=== PATIENT | male | born 1935 | race African-American/Black ===

== ENCOUNTER 2017-09-30 19:53 | Observation (INO) | payer OTHER ==
[~2017-09-30] VITALS: Ht 172.7 cm; Wt 72.6 kg
[~2017-09-30 19:53] MED LIST: AGGRENOX 25 MG-1 CAP PO; AGGRENOX 25 MG1 EACH PO; AMLODIPINE BESY PO; AMLODIPINE-ATO1 EAC7 PO; BACTRIM DS 8001 TAB PO; CIALIS20 M1 PO; GLIPIZIDE ER10 M1 PO; GLIPIZIDE ER10 MG PO; LISINOPRIL AND1 TA1 PO; LISINOPRIL-HCT1 EACH PO; MAGNESIUM OXID400 MG PO; MAGNESIUM400 MG PO; MELOXICAM15 M1 PO; METFORMIN HCL1000 M1 PO; METFORMIN1000 MG PO; ZOFRAN ODT4 M1 SL
--- NOTE | 2017-09-30 21:01 | ED AMS/SEIZURE/WEAK/DIZZY ---
History of Present Illness General Chief Complaint: Altered Mental Status Stated Complaint: HAVING PROBLEMS WITH MEMORY Source: patient, family, old records Exam Limitations: poor historian Vital Signs & Intake/Output Vital Signs & Intake/Output Vital Signs Date Time Temp Pulse Resp B/P B/P Pulse O2 O2 Flow FiO2 Mean Ox Delivery Rate 09/30 2238 97.2 55 18 147/74 96 Room Air 09/30 2024 97.1 83 18 148/92 96 Room Air Allergies Coded Allergies: NO KNOWN ALLERGIES (11/11/11) Reconcile Medications Amlodipine/Atorvastatin (Amlodipine-Atorvast 5-20 MG) 5 MG-20 MG TABLET 1 TAB PO DAILY BP/CHOL (Reported) Dipyridamole W/ Aspirin (Aggrenox 25 MG-200 MG Capsule) 25 MG-200 MG CPMP.12HR 1 CAP PO BID BLOOD THINNER (Reported) Glipizide (Glipizide ER) 10 MG TAB.ER.24 1 TAB PO BID DM (Reported) Lisinopril/Hydrochlorothiazide (Lisinopril-Hctz 20-12.5 MG Tab) 20 MG-12.5 MG TABLET 1 TAB PO DAILY BP (Reported) Magnesium Oxide (Magnesium) 400 MG TABLET 1 TAB PO BID SUPPLEMENT (Reported) Meloxicam 15 MG TABLET 1 TAB PO DAILY PAIN/INFLAMMATION (Reported) Metformin HCl 1,000 MG TABLET 1 TAB PO BID DM (Reported) Ondansetron (Zofran Odt) 4 MG TAB.RAPDIS 1 TAB SL TID Nausea Tadalafil (Cialis) 20 MG TABLET 1 TAB PO AD PRN ED (Reported) Triage Note: PT FROM HOME C/O AMS SINCE 1800 AFTER NAP. PT HAS HX OF TIA, PT STATES THAT AFTER HIS NAP TODAY HE AWOKE WITH DISORIENTATION, PTS STATED PT WAS FORGETFUL, UNABLE TO GET THE PROPER WORDS OUT, AND UNABLE TO DESCRIBE PEOPLE OR PLACES. PTS NIH STROKE SCALE 0. PT HAS BILATERAL AND EQUAL MOVEMENTS OF ROM, FACIAL SYMMETRY. PTS BS IN TRIAGE 139. PTS A&0X3. Triage Nurses Notes Reviewed? yes HPI: Patient presents for evaluation of poor memory, disorientation and difficulty speaking after having a nap at about 1800 hrs. Past History Travel History Traveled to [place] past 21 day No Medical History Any Pertinent Medical History? 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 No Review of Systems Review of Systems Constitutional: Reports: no symptoms. EENTM: Reports: no symptoms. Respiratory: Reports: no symptoms. Cardiovascular: Reports: no symptoms. GI: Reports: no symptoms. Genitourinary: Reports: no symptoms. Musculoskeletal: Reports: no symptoms. Skin: Reports: no symptoms. Neurological/Psychological: Reports: see HPI. Hematologic/Endocrine: Reports: no symptoms. Immunologic/Allergic: Reports: no symptoms. All Other Systems: Reviewed and Negative Physical Exam Physical Exam General Appearance: see below Comments: Gen.: Well-nourished, well-developed, no acute respiratory distress. Head: Normocephalic, atraumatic. Eyes: Normal inspection bilaterally Ears: Normal inspection bilaterally Nose: Normal inspection Throat/mouth : Moist mucosa Neck: Supple, full range of motion, no goiter Heart: Regular rate and rhythm, no murmurs rubs or gallops Lungs: Clear to auscultation bilaterally with normal air entry Chest: Nontender Back: Normal range of motion Abdomen: Soft, nontender, nondistended, normal bowel sounds Extremities: Normal range of motion grossly, equal radial pulses, no cyanosis clubbing or edema Neurologic: Cranial nerves , speech is clear, gait stable Skin: warm and dry Psychiatric: Calm, cooperative, no apparent delusions or hallucinations Core Measures ACS in differential dx? No CVA/TIA Diagnosis Yes NIH Stroke Scale (24 Hours) NIH Stroke Scale (24 Hours) Response Value Level of Consciousness alert 0 LOC Questions answers both correctly 0 LOC Commands obeys both correctly 0 Best Gaze normal 0 Visual Manzano no visual loss 0 Facial Paresis normal 0 Motor Arm - Left no drift 0 Motor Arm - Right no drift 0 Motor Leg - Left no drift 0 Motor Leg - Right no drift 0 Limb Ataxia no ataxia 0 Sensory normal 0 Best Language no aphasia 0 Dysarthria normal articulation 0 Extinction and Inattention no neglect 0 Total 0 Swallow Evaluation Pass Sepsis Present: No Sepsis Focused Exam Completed? No Progress Differential Diagnosis: CVA/stroke, hypoglycemia, hypoxia, intracranial mass/ tumor Plan of Care: Orders Procedure Date/time Status Heart Healthy Diet 10/01 B Active Add-on Test (ER Only) 09/30 2302 Active EKG 09/30 2156 Active URINE DRUG SCREEN FOR ER ONLY 09/30 2033 Complete ETHANOL 09/30 2033 Complete COMPREHENSIVE METABOLIC PANEL 09/30 2033 Complete CBC WITHOUT DIFFERENTIAL 09/30 2033 Complete Laboratory Tests 09/30/17 2100: Urine Opiates Screen < 100.00, Methadone Screen < 40, Barbiturate Screen < 60, Ur Phencyclidine Scrn < 6.00, Amphetamines Screen < 100, U Benzodiazepines Scrn < 85, Urine Cocaine Screen < 50, Urine Cannabis Screen < 5.00 09/30/172053: Anion Gap 14, Estimated GFR 58 L, BUN/Creatinine Ratio 19.2, Glucose 107 H, Calcium 9.9, Total Bilirubin 0.2, AST 17, ALT 35, Alkaline Phosphatase 69, Total Protein 7.2, Albumin 4.1, Globulin 3.1, Albumin/Globulin Ratio 1.3, CBC w Diff NO MAN DIFF REQ, RBC 3.94 L, MCV 90.0, MCH 29.5, RDW 14.0, MPV 9.1, Gran % 60.4 , Lymphocytes % 25.3, Monocytes % 11.6 H, Eosinophils % 2.3, Basophils % 0.4, Absolute Granulocytes 3.3, Absolute Lymphocytes 1.4, Absolute Monocytes 0.6, Absolute Eosinophils 0.1, Absolute Basophils 0, PUBS MCHC 32.8 L, Serum Alcohol < 10.0 Radiology Impression: PATIENT: BOONE MALHOTRA PRESENT AGE: 81 PATIENT ACCOUNT NO: [id number] : 37 LOCATION: [facility] ORDERING PHYSICIAN: Rigoberto VIEYRA SERVICE DATE: 09/30/17-2032 EXAM TYPE: CAT - CT HEAD WO IV CONTRAST EXAMINATION: CT HEAD WITHOUT CONTRAST CLINICAL INFORMATION: Altered mental status and confusion; question CVA. COMPARISON: Prior CT examinations of the brain, most recently 05/18/2017. TECHNIQUE: Contiguous axial imaging was performed from the skull base to vertex without intravenous administration of contrast. DLP: 552.07 mGy-cm FINDINGS: There is no evidence of acute intracranial hemorrhage or territorial infarction. No abnormal mass effect or midline shift is seen. Farrell to white matter differentiation is well preserved. No extra-axial fluid collections are identified. The ventricles are normal in size. A chronic-appearing lacunar infarction is seen adjacent to the left thalamus and posterior limb internal capsule (2:26). This is more prominent than was seen previously. The osseous structures and soft tissues are normal. There is moderate right ethmoid sinusitis, most pronounced posteriorly. The mastoid air cells are well-aerated and clear. IMPRESSION: 1. No acute intracranial pathology. 2. 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 3. There is moderate right ethmoid sinusitis. DICTATED BY: Tahir Smyth MD DATE/ TIME DICTATED:09/30/172112 OFFICE SERVICES ASSISTANT:EMMANUEL DATE/TIME TRANSCRIBED: 09/30/172112 CONFIDENTIAL, DO NOT COPY WITHOUT APPROPRIATE AUTHORIZATION. < Electronically signed in Other Vendor System> SIGNED BY: Tahir Smyth MD 09/30/172120 Initial ED EKG: NSR, rate (74), PAC'S Prior EKG: unchanged Comments: 09/30/2017 11:04:15 PM I have updated Boone and his daughter on test results. Departure Departure Disposition: STILL A PATIENT Condition: Stable Clinical Impression Primary Impression: TIA (transient ischemic attack) Referrals: Naun Collazo MD (PCP/Family) Departure Forms: Customer Survey General Discharge Information Observation Note Spoke With: Cy Tena MD Place Patient In: Non-ED OBS Care Area Rationale for Observation: My rational for observation is as follows patient presents for evaluation of an episode of disorientation, trouble speaking and confusion. This episode is consistent with a TIA and the patient has a past history of prior TIAs along with hypertension and diabetes. He is at risk of a completed stroke and I feel he now requires an expedited evaluation for potentially reversible causes of TIA including cardioembolic phenomenon and carotid artery disease. I do not feel he is a good candidate for outpatient management given that the evaluation would likely take too long to complete placing him at risk of a completed stroke. I feel he now requires hospitalization for cardiac monitoring for the possibility of transient cardiac dysrhythmia and cardiac box phenomenon. In addition I feel he requires evaluation by neurology. Patient's medications should be reviewed and are optimized. Echocardiogram and carotid Doppler studies should be considered.
[2017-09-30 21:08] LABS: ABSOLUTE BASOPHIL COUNT 0 /CUMM (0.0-0.2); ABSOLUTE EOSINOPHIL COUNT 0.1 /CUMM (0.0-0.7); ABSOLUTE GRANULOCYTE CT 3.3 /CUMM (1.4-6.5); ABSOLUTE LYMPH COUNT 1.4 /CUMM (1.2-3.4); ABSOLUTE MONOCYTE COUNT 0.6 /CUMM (0.10-0.60); BASOPHIL % 0.4 % (0.0-2.0); EOSINOPHIL % 2.3 % (0-5); GRANULOCYTE % 60.4 % (42.2-75.2); HEMATOCRIT 35.4 % (42-52); MEAN CORPUSCULAR HGB 29.5 PG (27.0-31.0); MEAN CORPUSCULAR HGB CONC 32.8 G/DL (33.0-37.0); MEAN PLATELET VOLUME 9.1 FL (7.4-10.4); PLATELET COUNT 304 /CUMM (130-400); RED BLOOD CELL CT 3.94 /CUMM (4.70-6.10); WHITE BLOOD CELL COUNT 5.5 /CUMM (4.8-10.8)
--- NOTE | 2017-09-30 21:21 | CT SCAN REPORT ---
EXAMINATION: CT HEAD WITHOUT CONTRAST CLINICAL INFORMATION: Altered mental status and confusion; question CVA. COMPARISON: Prior CT examinations of the brain, most recently 05/18/2017. TECHNIQUE: Contiguous axial imaging was performed from the skull base to vertex without intravenous administration of contrast. DLP: 552.07 mGy-cm FINDINGS: There is no evidence of acute intracranial hemorrhage or territorial infarction. No abnormal mass effect or midline shift is seen. Farrell to white matter differentiation is well preserved. No extra-axial fluid collections are identified. The ventricles are normal in size. A chronic-appearing lacunar infarction is seen adjacent to the left thalamus and posterior limb internal capsule (2:26). This is more prominent than was seen previously. The osseous structures and soft tissues are normal. There is moderate right ethmoid sinusitis, most pronounced posteriorly. The mastoid air cells are well-aerated and clear. IMPRESSION: 1. No acute intracranial pathology. 2. 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 3. There is moderate right ethmoid sinusitis.
--- NOTE | 2017-09-30 23:58 | History & Physical ---
Monica JURADO,Kathy 09/30/17 4862: General Information and HPI MD Statement: I have seen and personally examined BOONE MALHOTRA and documented this H&P. The patient is a 81 year old M who presented with a patient stated chief complaint of [confusion]. 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 Patient states that at approximately 6:00 PM on day of admission he fell asleep watching TV and woke up after taking and felt confused however he was able to recognize his and knew that he was at home. States that he was having trouble answering his 's questions. Stated he knew what he wanted to say but was unable to say the words. Patient states that he also had trouble recalling names and had trouble comprehending written words. States that he had some slowing of speech. Patient denies any facial droop or being told that he had a droop. Denies any weakness or numbness. States that at baseline he has some unsteadiness on his feet which has remained the same during this event. Patient denies leaning to or favoring one side. Patient denies any loss of consciousness, headache, visual changes, bowel or bladder incontinence, lightheadedness, dizziness, chest pain, palpitations, nausea/vomiting, shortness of breath. Patient states that his symptoms lasted approximately 5 minutes and after which he returned to his baseline. Patient is currently on metformin and glipizide however does not check his sugars regularly. His sugar per ED notes was 139. Patient has had TIAs in the past, the last was in 2013 admitted to [facility]. Patient states that the symptoms he has had this admission are similar to those in 2014. Patient is currently on Aggrenox which he states he sometimes misses doses. Patient sees Dr. Hartley and states that he has had a Holter monitor in the past and has been diagnosed with an extra heart beat. Allergies/Medications Allergies: Coded Allergies: NO KNOWN ALLERGIES (11/11/11) Home Med list Amlodipine/Atorvastatin (Amlodipine-Atorvast 5-20 MG) 5 MG-20 MG TABLET 1 TAB PO DAILY BP/CHOL (Reported) Dipyridamole W/ Aspirin (Aggrenox 25 MG-200 MG Capsule) 25 MG-200 MG CPMP.12HR 1 CAP PO BID BLOOD THINNER (Reported) Glipizide (Glipizide ER) 10 MG TAB.ER.24 1 TAB PO BID DM (Reported) Lisinopril/Hydrochlorothiazide (Lisinopril-Hctz 20-12.5 MG Tab) 20 MG-12.5 MG TABLET 1 TAB PO DAILY BP (Reported) Magnesium Oxide (Magnesium) 400 MG TABLET 1 TAB PO BID SUPPLEMENT (Reported) Meloxicam 15 MG TABLET 1 TAB PO DAILY PAIN/INFLAMMATION (Reported) Metformin HCl 1,000 MG TABLET 1 TAB PO BID DM (Reported) Tadalafil (Cialis) 20 MG TABLET 1 TAB PO AD PRN ED (Reported) Past History Travel History Traveled to [place] past 21 day No Medical History Neurological: TIA X2 EENT: NONE Cardiovascular: hypertension, hyperlipidemia, irreg heart beat Gastrointestinal: NONE Hepatic: NONE Renal: NONE Musculoskeletal: NONE Psychiatric: NONE Endocrine: diabetes Blood Disorders: NONE Cancer(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 Denies: chills, fever. Cardiovascular: Denies: chest pain, palpitations, syncope. Respiratory: Denies: cough, short of breath. GI: Denies: abdominal pain, bowel incontinence, nausea, vomiting. Genitourinary: Denies: dysuria, frequency, hematuria, urgency. Musculoskeletal: Reports: no symptoms. Skin: Reports: no symptoms. Neurological/Psychological: Reports: confusion. Hematologic/Endocrine: Reports: no symptoms. Immunologic/Allergic: Reports: no symptoms. Exam & Diagnostic Data Last 24 Hrs of Vital Signs/I&O Vital Signs Date Time Temp Pulse Resp B/P B/P Pulse O2 O2 Flow FiO2 Mean Ox Delivery Rate 10/01 0057 98.1 78 18 169/81 97 Room Air 09/309 97.2 55 18 147/74 96 Room Air 09/30 2024 97.1 83 18 148/92 96 Room Air Intake & Output 10/01 0800 10/01 0000 09/30 1600 Intake Total 0 Output Total Balance 0 Intake, Oral 0 Patient 160 lb Weight Weight Estimated Measurement Method Physical Exam General Appearance Alert, Oriented X3, Cooperative, No Acute Distress Skin No Rashes Skin Temp/Moisture Exam: Warm/Dry HEENT Atraumatic, PERRLA, EOMI, Mucous Membr. moist/pink Neck Supple, No JVD, No thryomegaly, +2 Carotid Pulse wo Bruit Lymphatic Axillary nl Cardiovascular Regular Rate, Normal S1, Normal S2 Lungs Clear to Auscultation, Normal Air Movement Abdomen Normal Bowel Sounds, Soft, No Tenderness Neurological Normal Gait, Normal Speech, Strength at 5/5 X4 Ext, Normal Tone, Sensation Intact, Cranial Nerves 3-12 NL, Reflexes 2+, negative rhomberg, reflexes 2+ brachial and patellar Extremities No Clubbing, No Cyanosis, No Edema, Normal Pulses, No Tenderness/ Swelling Vascular Normal Pulses, Pulses Symmetrical Last 24 Hrs of Labs/Rd: Laboratory Tests 09/30/17 2100: Urine Opiates Screen < 100.00, Methadone Screen < 40, Barbiturate Screen < 60, Ur Phencyclidine Scrn < 6.00, Amphetamines Screen < 100, U Benzodiazepines Scrn < 85, Urine Cocaine Screen < 50, Urine Cannabis Screen < 5.00, Urine Color YEL, Urine Clarity CLEAR, Urine pH 6.5, Ur Specific [place] 1.020, Urine Protein NEG, Urine Ketones NEG, Urine Nitrite NEG, Urine Bilirubin NEG, Urine Urobilinogen 0.2, Ur Leukocyte Esterase NEG, Ur Microscopic EXAM NOT REQUIRED, Urine Hemoglobin NEG, Urine Glucose NEG 09/30/172053: Anion Gap 14, Estimated GFR 58 L, BUN/Creatinine Ratio 19.2, Glucose 107 H, Calcium 9.9, Total Bilirubin 0.2, AST 17, ALT 35, Alkaline Phosphatase 69, Troponin I Pending, Total Protein 7.2, Albumin 4.1, Globulin 3.1, Albumin/ Globulin Ratio 1.3, CBC w Diff NO MAN DIFF REQ, RBC 3.94 L, MCV 90.0, MCH 29.5, RDW 14.0, MPV 9.1, Gran % 60.4, Lymphocytes % 25.3, Monocytes % 11.6 H, Eosinophils % 2.3, Basophils % 0.4, Absolute Granulocytes 3.3, Absolute Lymphocytes 1.4, Absolute Monocytes 0.6, Absolute Eosinophils 0.1, Absolute Basophils 0, PUBS MCHC 32.8 L, Serum Alcohol < 10.0 Diagnostic Data EKG Results Sinus rhythm with HR: 74, LAD, premature atrial beats, no ST or Twave changes Other Results CT head: no acute findings, chronic appearing lunar infarct L thalamus more pronounced from previous imaging, R ethmoid sinusitis Assessment/Plan Assessment: Patient is a 81-year-old male with past medical history significant for TIA 2, diabetes, hypertension, hyperlipidemia and irregular heartbeat presenting this admission with transient expressive aphasia. Patient will be placed on observation on telemetry for the followin. Transient ischemic attack Monitor on telemetry for any arrhythmia especially atrial fibrillation Serial EKG and troponins Neurology consult Cardiology consult MRI in the a.m. Echocardiogram Carotid Dopplers Continue Aggrenox Continue atorvastatin at a higher dose 80mg Patient passed a bedside swallow Formal swallow evaluation in the a.m. PT eval in the a.m. 2. History of hypertension Continue amlodipine 5 mg Continue lisinopril/hydrochlorothiazide 3. History of diabetes Hold oral hypoglycemic agents Place on insulin sliding scale and Accu-Cheks 3 times a day/daily at bedtime 4. History of hyperlipidemia Continue atorvastatin 5. History of irregular heartbeat- EKG showing multiple premature atrial beats Continue magnesium oxide 400 mg twice a day DVT Prophylaxis: Heparin subcutaneous Diet: Diabetic diet Code: Full code As Ranked By This Provider Problem List: 1. TIA (transient ischemic attack) Core Measures/Misc (06/04) Acute Coronary Syndrome ACS Diagnosis: No Congestive Heart Failure Congestive Heart Failure Diagnosis No Cerebrovascular Accident CVA/TIA Diagnosis: Yes NIH Stroke Scale: Total 0 Date Last Known Well: 09/30/17 Time Last Known Well: 1800 Symptom Start Date: 09/30/17 Symptom Start Time: 1800 Reason tPA not ordered Medical Contraindication Swallow Evaluation Pass Current/Past Hx AFib/AFlutter No VTE (View Protocol) VTE Risk Factors Age>40 No Mechanical VTE Prophylaxis d/t N/A MechProphylax Ordered No VTE Pharm Prophylaxis d/t NA PharmProphylax ordered Sepsis (View protocol) Sepsis Present: No Franc Chaney 10/01/17 0203: Resident Review Statement Resident Statement: examined this patient, discussed with r d intern, agreed with r d intern, discussed with family, reviewed EMR data (avail), discussed with nursing , discussed with case mgmt, reviewed images, amended to note Other Findings: Patient is a 81-year-old -[place] gentleman with past medical history of hypertension, diabetes, previous TIA in 2013 (on Aggrenox) presented at the emergency room complaining of brief episode of speech disturbance. He was at his usual state of health up when this evening, suddenly developed a brief (less than 5 minutes), self limited, spell expressive aphasia, and disturbance of thought (could not think straight), and inability to read. This episode was not accompanied by any headache, loss of consciousness, numbness/ weakness, chest palpitation, feeling nauseous/and vomiting, sweating. Patient lives with his ; he has an chronic back pain and mild gait instability, but ambulates without help; he is independent in his daily chores and taking care of his and himself (primary caregiver for his ). FHx: HTN; ROS: negaive; VSS; PH/Ex: HEET: membranes most, EOMI, no carotid bruit pupil:reactive and symmetric; HEART: S1-S2, mild crescent decrease in the systolic murmur right upper sternal borderl; lungs: Clear; abdomen: Within normal limits; Neuro: AOx3, strength: 5/5 x4 extremities, sensation: decreased in B/L lower extremities; reflexes: +2 bracial, +1 knee jerk, pulses: +2 x4 extremities. Pertinent Data: CBC:wnl; BEP: Creatinine 1.2 , BUN 23, sodium 146, potassium 4.7. Head CT scan: negative EKG: Normal sinus rate and rhythm, 74 beats per minutes, nonspecific ST-T wave change Assessment and plan 81-year-old gentleman past medical history of hypertension, diabetes, and previous TIA was admitted for another episode of expressive aphasia/TIA. List of active problems #1 TIA: Trending troponin and ruling out ACS, obtaining echo ruling out structural heart disease, continuous heart monitoring for undiagnosed arrhythmia. #2 Hypertension #3 Diabetes #4 DVT PPx Plan * Admit to telemetry for 24-hour continuous heart monitoring * Neuro check Q4 h * Obtain echo in the a.m. * Obtain Doppler ultrasound of the carotid arteries * Physical therapy/OT eval in the morning * Official swallow eval in the a.m. * Patient past bedside swallow eval * Continue his Aggrenox * Continue his lisinopril/hydrochlorothiazide and amlodipine * Strat high inensity statin- 40 mg * stop oral hypoglycemic agents * Insulin NovoLog sliding scale * Cardiology consult in the a.m. * Neuro consult in the a.m. * No labs for tomorrow Pain pathway FC- not wishes to remain intubated for a long time CHO diet Hepairn 5000U SQ q8h Darinel JURADO, Sitalaksh 10/01/17 0446: Attending MD Review Statement Attending Statement Attending MD Statement: examined this patient, discuss w/resident/PA/VIDEO PRODUCTION COORDINATOR, agreed w/resident/PA/VIDEO PRODUCTION COORDINATOR, reviewed images, amended to note Attending Assessment/Plan: 81 yo M with h/o HTN, T2DM, CKD stage 3, HLD, TIA (2013), ectopy (extra beats per patient), is here for evaluation of expressive aphasia. Patient reports that he woke up from his evening nap at 6 pm, and started to lose memory. He couldn't think or recall. He knew where he was and he recognized his . When his asked some questions, he was not able to give an answer. He knew what he wanted to say but was not able to get the words right. He also could not read the sports newspaper, his brain was not processing the words, although his vision was ok. This last for about 5 minutes and his symptoms resolved completely. He denied slurring of speech, facial droop, weakness, paresis, thingling/ numbness, headache or vision changes. He has baseline gait instability. Patient states he sometimes forgets to take his medications and may have missed a few doses. Vitals stable. Neuro exam is nonfocal. Labs unremarkable except for BUN 23, glucose 107, trop neg. UA and Utox neg. Alcohol < 10. CT head: no acute pathology, chronic appearing lacunar infarction in the vicinity of left thalamus. EKG: Sinus arrhythmia with PAC's, peaked T-waves V2-4 (new). Assessment and plan: 1. Expressive aphasia, TIA 2. Essential hypertenion 3. Type 2 diabetes with neuropathy 4. Previous h/o TIA in 2013 - 23 hour observation on Telemetry - Neurochecks Q4 - Fall precautions - Monitor for arrhythmias - Serial EKG and troponin - Obtain echo and carotid dopplers - Cardio and Neuro consults - Continue aggrenox and change lipitor from 20 mg to 80 mg - Ensure med compliance - Check lipid panel, HbA1c, TSH, free T4. - Swallow eval. Patient passed bedside swallow eval in ER - PT and OT eval - Resume anti-hypertensives lisinopril-HCTZ and amlodipine - Hold glipizide, metformin, initiate novolog SS DVT ppx Hep SC. Full code. Observation Initial Note - I have personally examined BOONE MALHOTRA on 10/01/17 at 0447. The disposition of BOONE MALHOTRA is uncertain at this time and before a determination can be made, he requires a period of observation for the following reasons [TIA]
--- NOTE | 2017-10-01 05:01 | Event Note ---
Event Note Event Note: Patient's second EKG @ 3AM showed T wave flattening/inversion. EKG was repeated which showed no T wave changes. One more EKG and Troponin is ordered for 9AM.
--- NOTE | 2017-10-01 12:35 | PN- Att Addend ---
Attending Addendum Attending Brief Note Mr. Ruiz was seen and evaluated. H&P reviewed. Denies any further episodes of confusion or aphaisa. No CP, GI or complaints Vital Signs Date Time Temp Pulse Resp B/P B/P Pulse O2 O2 Flow FiO2 Mean Ox Delivery Rate 10/01 0853 78 169/81 10/01 0853 78 169/81 10/01 0057 98.1 78 18 169/81 97 Room Air 09/309 97.2 55 18 147/74 96 Room Air 09/30 2024 97.1 83 18 148/92 96 Room Air Intake & Output 10/01 1600 10/01 0800 10/01 0000 Intake Total 110 0 Output Total Balance 110 0 Intake, IV 10 Intake, Oral 100 0 Patient 72.575 kg 72.575 kg Weight Weight Estimated Measurement Method GEN: NAD, AAOx3 HEENT: moist mucosa LUNGS: CTA HEART: s1s2 Laboratory Tests 10/01/17 1030: Troponin I < 0.01 10/01/17 0250: Troponin I < 0.01 09/30/17 2100: Urine Opiates Screen < 100.00, Methadone Screen < 40, Barbiturate Screen < 60, Ur Phencyclidine Scrn < 6.00, Amphetamines Screen < 100, U Benzodiazepines Scrn < 85, Urine Cocaine Screen < 50, Urine Cannabis Screen < 5.00, Urine Color YEL, Urine Clarity CLEAR, Urine pH 6.5, Ur Specific [place] 1.020, Urine Protein NEG, Urine Ketones NEG, Urine Nitrite NEG, Urine Bilirubin NEG, Urine Urobilinogen 0.2, Ur Leukocyte Esterase NEG, Ur Microscopic EXAM NOT REQUIRED, Urine Hemoglobin NEG, Urine Glucose NEG 09/30/172053: Anion Gap 14, Estimated GFR 58 L, BUN/Creatinine Ratio 19.2, Glucose 107 H, Hemoglobin A1c Pending, Calcium 9.9, Total Bilirubin 0.2, AST 17, ALT 35, Alkaline Phosphatase 69, Troponin I < 0.01, Total Protein 7.2, Albumin 4.1, Globulin 3.1, Albumin/Globulin Ratio 1.3, Triglycerides 67, Cholesterol 145, LDL Cholesterol, Calc 84, HDL Cholesterol 48, Cholesterol/HDL Ratio 3, TSH 3.050, Thyroxine (T4) 8.0, CBC w Diff NO MAN DIFF REQ, RBC 3.94 L, MCV 90.0, MCH 29.5, RDW 14.0, MPV 9.1, Gran % 60.4, Lymphocytes % 25.3, Monocytes % 11.6 H, Eosinophils % 2.3, Basophils % 0.4, Absolute Granulocytes 3.3, Absolute Lymphocytes 1.4, Absolute Monocytes 0.6, Absolute Eosinophils 0.1, Absolute Basophils 0, PUBS MCHC 32.8 L, Serum Alcohol < 10.0 A/P Likely TIA - resolved. Awating neuro final input Trop's x 3 - negative Likely can be d/chaya if OK with Neuro rest of the plan as per resident's ntoe
[2017-10-01 14:44] VITALS: BP 144/70
--- NOTE | 2017-10-01 17:07 | Cons- Neurology ---
General Information and HPI Consulting Request Date of Consult: 10/01/17 Requested By: Darinel JURADO,Cy History of Present Illness: 81-year-old male admitted yesterday evening Patient states that he took a nap His awakened him to do some errands He was then noted that he had difficulty with speaking and seemed confused According to admission note he also had comprehension difficulty with written words and his had noted that his speech was very slow There was no accompanying headache or focal weakness He did not have any difficulty walking There was no shaking or convulsive activity Admission note stated that the symptoms lasted 5 minutes although patient believes that his may have been as long as 20 minutes There was a previous similar episode in 2014 He did have a documented previous cerebrovascular accident and has been on a regimen of a statin and Aggrenox both of which he tolerates well There was no head trauma or fall Allergies/Medications Allergies: Coded Allergies: NO KNOWN ALLERGIES (11/11/11) Home Med List: Amlodipine/Atorvastatin (Amlodipine-Atorvast 5-20 MG) 5 MG-20 MG TABLET 1 TAB PO DAILY BP/CHOL (Reported) Dipyridamole W/ Aspirin (Aggrenox 25 MG-200 MG Capsule) 25 MG-200 MG CPMP.12HR 1 CAP PO BID BLOOD THINNER (Reported) Glipizide (Glipizide ER) 10 MG TAB.ER.24 1 TAB PO BID DM (Reported) Lisinopril/Hydrochlorothiazide (Lisinopril-Hctz 20-12.5 MG Tab) 20 MG-12.5 MG TABLET 1 TAB PO DAILY BP (Reported) Magnesium Oxide (Magnesium) 400 MG TABLET 1 TAB PO BID SUPPLEMENT (Reported) Meloxicam 15 MG TABLET 1 TAB PO DAILY PAIN/INFLAMMATION (Reported) Metformin HCl 1,000 MG TABLET 1 TAB PO BID DM (Reported) Tadalafil (Cialis) 20 MG TABLET 1 TAB PO AD PRN ED (Reported) Current Medications: Current Medications Sig/Gabby Start time Last Medication Dose Route Stop Time Status Admin Acetaminophen 1,000 MG Q6 PRN 10/01 0931 AC IV Acetaminophen 1,000 MG Q6 10/01 0600 DC IV Acetaminophen 650 MG Q6P PRN 10/01 0300 AC PO Amlodipine Besylate 5 MG DAILY 10/01 1000 AC 10/01 PO 0853 Aspirin 81 MG DAILY 10/02 1000 CAN PO Atorvastatin Calcium 20 MG 1700 10/01 1700 DC PO Atorvastatin Calcium 40 MG 1700 10/01 1700 DC PO Atorvastatin Calcium 80 MG 1700 10/01 1700 AC PO Dipyridamole/Aspirin 1 CAP BID 10/01 0153 AC 10/01 PO 0852 Heparin Sodium 5,000 UNIT Q8 10/01 0133 AC 10/01 (Porcine) SC 1456 Hydrochlorothiazide 12.5 MG DAILY 10/01 1000 AC 10/01 PO 0852 Insulin Aspart 0 TIDAC 10/01 0800 AC 10/01 SC 1303 Lisinopril 20 MG DAILY 10/01 1000 AC 10/01 PO 0853 Magnesium Oxide 400 MG BID 10/01 1000 AC 10/01 PO 0853 Oxycodone/ 2 TAB Q6P PRN 10/01 0300 AC Acetaminophen PO Review of Systems Review of Systems: No headache or vertigo No difficulty with swallowing No fall No chest pains or breathing difficulties No abdominal pain or vomiting No bladder difficulty or incontinence No swelling or rash No fever Weight has been stable after significant weight loss about 3 years ago Notes chronic weakness in both hands Other systems reviewed negative Past History Travel History Traveled to [place] past 21 day No Medical History Blood Transfusion Hx: No Neurological: TIA X2 EENT: NONE Cardiovascular: hypertension, hyperlipidemia, irreg heart beat Respiratory: NONE Gastrointestinal: NONE Hepatic: NONE Renal: NONE Musculoskeletal: NONE Psychiatric: NONE Endocrine: diabetes Blood Disorders: NONE Cancer(s): NONE 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/Reproductive: NONE Surgical History Surgical History: none Family History Relations & Conditions If Any: FATHER FH: diabetes mellitus FH: stomach cancer MOTHER FH: diabetes mellitus FATHER FH: diabetes mellitus BROTHER Psychosocial History Services at Home: None Smoking Status: Never Smoked ETOH Use: denies use Illicit Drug Use: denies illicit drug use Exam & Diagnostic Data Vital Signs and I&O Vital Signs Date Time Temp Pulse Resp B/P B/P Pulse O2 O2 Flow FiO2 Mean Ox Delivery Rate 10/01 1444 97.7 73 18 144/70 98 Room Air 10/01 0853 78 169/81 10/01 0853 78 169/81 10/01 0057 98.1 78 18 169/81 97 Room Air 09/30 2238 97.2 55 18 147/74 96 Room Air 09/30 2024 97.1 83 18 148/92 96 Room Air Intake & Output 10/01 1600 10/01 0800 10/01 0000 Intake Total 450 110 0 Output Total Balance 450 110 0 Intake, IV 10 Intake, Oral 450 100 0 Patient 160 lb 160 lb Weight Weight Estimated Measurement Method Physical Exam: Alert and oriented Language functions fund of knowledge attention span and concentration and recall intact Heart sounds normal, no carotid bruits, distal pulses intact Extraocular movements full, pupils equal reactive, fundi benign, visual santos intact, no facial weakness or facial sensory loss Palate and shows intact,, hearing grossly intact Normal tone upper and lower extremities Gross strength intact except for intrinsic hand muscles predominantly in ulnar distribution right side greater than left which shows weakness and atrophy Sensory examination shows mild diminution to light touch in the right fourth and fifth digits Deep tendon reflexes hypoactive throughout Coordinative functions and gait show no abnormalities Imaging/Other Studies: CT head IMPRESSION: 1. No acute intracranial pathology. 2. 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 3. There is moderate right ethmoid sinusitis. Assessment/Plan Assessment: Transient confusional episode versus aphasic episode Symptoms completely resolved Bilateral intrinsic hand muscle atrophy and weakness, possibly secondary to chronic ulnar nerve impingement versus C8-T1 radiculopathy Recommendations: Carotid ultrasound to assess for possibility of carotid stenosis on left If over 70% stenosis would consider vascular surgical opinion Continue Aggrenox and statin Bilateral hand atrophy, should patient desire further evaluation would recommend EMG both upper extremities as an outpatient Consult Acknowledgment - Thank you for your consult request.
[2017-10-01 22:14] VITALS: BP 130/62
[2017-10-02 06:22] VITALS: BP 132/70
--- NOTE | 2017-10-02 07:50 | PN- Housestaff ---
See Addendum Subjective Follow-up For: TIA Tele-Events Since Last Visit: SR 90-120 Subjective: No overnight events. No further TIA symptoms. He came in with dysarthria as the main symptom. It has resolved. He also notes hand weakness, especially when playing the piano. No CP, SOB, or other issues. Review of Systems Constitutional: Reports: no symptoms. EENTM: Reports: no symptoms. Cardiovascular: Reports: no symptoms. Respiratory: Reports: no symptoms. Gastrointestinal: Reports: no symptoms. Genitourinary: Reports: no symptoms. Musculoskeletal: Reports: no symptoms. Skin: Reports: no symptoms. Neurological/Psychological: Reports: see HPI. Hematologic/Endocrine: Reports: no symptoms. Immunologic/Allergic: Reports: no symptoms. Objective Last 24 Hrs of Vital Signs/I&O Vital Signs Date Time Temp Pulse Resp B/P B/P Pulse O2 O2 Flow FiO2 Mean Ox Delivery Rate 10/02 0622 98.4 87 18 132/70 96 Room Air 10/01 2214 97.7 83 18 130/62 97 Room Air 10/01 1600 Room Air 10/01 1444 97.7 73 18 144/70 98 Room Air 10/01 0853 78 169/81 10/01 0853 78 169/81 Intake & Output 10/02 0800 10/02 0000 10/01 1600 Intake Total 120 440 450 Output Total Balance 120 440 450 Intake, Oral 120 440 450 Physical Exam General Appearance: Alert, Oriented X3, Cooperative, No Acute Distress Skin: No Rashes Cardiovascular: Regular Rate, Normal S1, Normal S2 Lungs: Clear to Auscultation Abdomen: Normal Bowel Sounds, Soft Neurological: Normal Speech, Strength at 5/5 X4 Ext, Normal Tone, Sensation Intact, Cranial Nerves 3-12 NL Extremities: No Edema, Normal Pulses, No Tenderness/Swelling Current Medications: Current Medications Sig/Gabby Start time Last Medication Dose Route Stop Time Status Admin Acetaminophen 1,000 MG Q6 PRN 10/01 0931 AC IV Acetaminophen 1,000 MG Q6 10/01 0600 DC IV Acetaminophen 650 MG Q6P PRN 10/01 0300 AC PO Amlodipine Besylate 5 MG DAILY 10/01 1000 AC 10/01 PO 0853 Atorvastatin Calcium 80 MG 1700 10/01 1700 AC 10/01 PO 1718 Dipyridamole/Aspirin 1 CAP BID 10/01 0153 AC 10/01 PO 2111 Heparin Sodium 5,000 UNIT Q8 10/01 0133 AC 10/02 (Porcine) SC 0622 Hydrochlorothiazide 12.5 MG DAILY 10/01 1000 AC 10/01 PO 0852 Insulin Aspart 0 TIDAC 10/01 0800 AC 10/01 SC 1303 Lisinopril 20 MG DAILY 10/01 1000 AC 10/01 PO 0853 Magnesium Oxide 400 MG BID 10/01 1000 AC 10/01 PO 2111 Oxycodone/ 2 TAB Q6P PRN 10/01 0300 AC Acetaminophen PO Last 24 Hrs of Lab/Rd Results Last 24 Hrs of Labs/Mics: Laboratory Tests 10/01/17 1030: Troponin I < 0.01 Assessment/Plan Assessment: Patient is a 81-year-old male with past medical history significant for TIA 2, diabetes, hypertension, hyperlipidemia and irregular heartbeat presented with transient expressive aphasia. Problem list: 1. Transient ischemic attack #Transient ischemic attack: Patient presented with this expressive aphasia that resolved. Workup so far has been negative including EKG and troponins 3 and TTE showing an ejection fraction greater than 60% and stable nodular thickening of the anterior mitral leaflet. Patient will likely benefit from outpatient echocardiogram with bubble study and 30 day loop recorder -Carotid ultrasound -Appreciate cardiology and neurology recommendations -Outpatient neurology follow-up for EMG in upper extremities #Chronic medical problems: -Continue home medications DVT prophylaxis with heparin Consistent carbohydrate 2 diet Full code Problem List: 1. TIA (transient ischemic attack) Pain Ratin Pain Location: none Pain Goal: Remain pain free Pain Plan: see a/p Tomorrow's Labs & Rationales: none
--- NOTE | 2017-10-02 09:44 | ECHOCARDIOGRAM REPORT ---
BOONE MALHOTRA Age: 81 : 1935 Gender: M Exam Date: 10/01/2017 09:44 Exam Location: 1 [address] Ht (in): 68 Wt (lb): 160 BSA: 1.87 BP: 169 / 81 Ordering Physician: Rl Garcia MD Referring Physician: Riley Hartley MD Technologist: Nini Haney [facility] Room Number: 184 Indications: STROKE Rhythm: Technical Quality: FINDINGS Left Ventricle Normal size left ventricle. Moderate concentric left ventricular hypertrophy. Left ventricular ejection fraction is estimated at >60%. No obvious regional wall motion abnormalities. Right Ventricle Normal right ventricular size and function. Right Atrium Normal right atrial size. Left Atrium Normal left atrial size. Mitral Valve Moderate mitral annular calcification. Nodular thickining or the anterior mitral leaflet which was previously seen on June 2014 is again seen. Mild mitral regurgitation. Aortic Valve Thickened aortic valve. Mild aortic stenosis. No aortic regurgitation. Tricuspid Valve Tricuspid valve not well visualized, grossly normal. Mild tricuspid regurgitation. No evidence of pulmonary hypertension. No evidence of pulmonary hypertension. Pulmonic Valve Pulmonic valve not well visualized, grossly normal. Pericardium No pericardial effusion. Great Vessels Normal size aortic root. CONCLUSIONS Normal size left ventricle. Moderate concentric left ventricular hypertrophy. Left ventricular ejection fraction is estimated at >60%. Moderate mitral annular calcification. Nodular thickining or the anterior mitral leaflet which was previously seen on June 2014 is again seen. Mild mitral regurgitation. Mild aortic stenosis. Mild tricuspid regurgitation. Riley Hartley M.D. (Electronically Signed) Final Date: 02 October 2017 09:43 MEASUREMENTS (Male / Female) Normal Values 2D ECHO LV Diastolic Diameter PLAX 3.6 cm 4.2 - 5.9 / 3.9 - 5.3 cm LV Systolic Diameter PLAX 2.3 cm 2.1 - 4.0 cm LV Fractional Shortening PLAX 36.1 % 25 - 46 % LV Ejection Fraction 2D Teich 66.7 % IVS Diastolic Thickness 1.5 cm LVPW Diastolic Thickness 1.5 cm LV Relative Wall Thickness 0.8 RV Internal Dim ED PLAX 2.7 cm 1.9 - 3.8 cm LVOT Diameter 2.4 cm Aortic Root Diameter 3.2 cm LA Systolic Diameter LX 3.6 cm 3.0 - 4.0 / 2.7 - 3.8 cm LA Volume 30.0 cm 18 - 58 / 22 - 52 cm Ascending Aorta Diameter 3.4 cm DOPPLER AV Peak Velocity 226.0 cm/s AV Peak Gradient 20.4 mmHg AV Mean Velocity 169.0 cm/s AV Mean Gradient 13.0 mmHg AV Velocity Time Integral 52.8 cm LVOT Peak Velocity 127.0 cm/s LVOT Peak Gradient 6.5 mmHg LVOT Mean Velocity 83.4 cm/s LVOT Mean Gradient 3.0 mmHg LVOT Velocity Time Integral 24.2 cm LVOT Stroke Volume 109.5 cm AV Area Cont Eq vti 2.1 cm AV Area Cont Eq pk 2.5 cm MV Peak Velocity 123.0 cm/s MV Peak Gradient 6.1 mmHg MV Mean Velocity 47.9 cm/s MV Mean Gradient 1.0 mmHg Mitral E Point Velocity 81.4 cm/s Mitral A Point Velocity 84.4 cm/s Mitral E to A Ratio 1.0 MV PHT Velocity 93.7 cm/s MV Deceleration [place] 397.0 cm/s MV Pressure Half Time 70.8 ms MV Area PHT 3.1 cm MV Deceleration Time 292.0 ms TR Peak Velocity 238.0 cm/s TR Peak Gradient 22.7 mmHg Right Atrial Pressure 5.0 mmHg Pulmonary Artery Systolic Pressu 27.7 mmHg Right Ventricular Systolic Press 27.7 mmHg PV Peak Velocity 112.0 cm/s PV Peak Gradient 5.0 mmHg PV Mean Velocity 77.9 cm/s PV Mean Gradient 3.0 mmHg PV Velocity Time Integral 27.3 cm LV E' Lateral Velocity 6.8 cm/s Mitral E to LV E' Lateral Ratio 11.9 LV E' Septal Velocity 5.0 cm/s Mitral E to LV E' Septal Ratio 16.4
--- NOTE | 2017-10-02 11:11 | Patient Discharge Instructions ---
Discharge Instructions General Discharge Information You were seen/treated for: Transient ischemic attack Watch for these problems: Chest pain, shortness of breath, focal weakness or numbness, confusion Special Instructions: Please take all medications as directed. Please follow-up with neurology. Please follow-up with your primary care. Diet Continue normal diet: Yes Activity Full Activity/No Limits: Yes Acute Coronary Syndrome Inclusion Criteria At DC or during hospital stay patient has or had the following: ACS DIAGNOSIS No Discharge Core Measures Meds if any: Prescribed or Continued at Discharge Meds if any: NOT Prescribed or Continued at Discharge Congestive Heart Failure Inclusion Criteria At DC or during hospital stay patient has or had the following: CHF DIAGNOSIS No Discharge Core Measures Meds if any: Prescribed or Continued at Discharge Meds if any: NOT Prescribed or Continued at Discharge Cerebrovascular accident Inclusion Criteria At DC or during hospital stay patient has or had the following: CVA/TIA Diagnosis Yes Discharge Core Measures Meds if any: Prescribed or Continued at Discharge Antithrombotic No Meds if any: NOT Prescribed or Continued at Discharge Venous thromboembolism Inclusion Criteria VTE Diagnosis No VTE Type NONE VTE Confirmed by (Test) NONE Discharge Core Measures - Per Current guidelines, there needs to be overlap - treatment for the first 5 days of Warfarin therapy. - If discharged on Warfarin prior to 5 days of - overlap therapy, the patient will need to be - assessed for post discharge needs including - *Post discharge parental anticoagulation - *Warfarin and/or parental anticoagulation education - *Follow up date to check INR post discharge At least 5 days overlap therapy as Inpatient No Meds if any: Prescribed or Continued at Discharge Note: Overlap Therapy is Warfarin and Anticoagulant Meds if any: NOT Prescribed or Continued at Discharge
--- NOTE | 2017-10-02 13:38 | ULTRASOUND REPORT ---
EXAMINATION: US DUPLEX CAROTID AND VERTEBRAL CLINICAL INFORMATION: Aphasia, TIA. COMPARISON: 12/19/2013 TECHNIQUE: Duplex bilateral carotid US was performed using real-time ultrasound and Doppler techniques (integrating B-mode 2D vascular images, Doppler spectral analysis and color flow Doppler imaging). These techniques were utilized to interrogate the extracranial carotid and vertebral arteries bilaterally. The degree of stenosis is based off criteria similar to NASCET. FINDINGS: 1. On the right: Plaque is present at the carotid bifurcation but velocity measurements are normal and do not suggest a stenosis of greater than 50% diameter reduction in the right ICA. The right external carotid artery shows no significant stenosis. The vertebral artery is patent demonstrating antegrade flow 2. On the left: Plaque is present at the carotid bifurcation but velocity measurements are normal and do not suggest a stenosis of greater than 50% diameter reduction in the left ICA. The left external carotid artery shows no significant stenosis. The vertebral artery is patent demonstrating antegrade flow. Compared to the prior study, there has been no interval change. IMPRESSION: Plaque is present in the internal carotid arteries but velocity measurements are normal and there is no evidence to suggest a hemodynamically significant stenosis of greater than 50% diameter reduction.
[2017-10-02 14:55] VITALS: BP 122/74
== END 2017-10-02 15:42 ==
LOC: ERH 19:53 → ERHI 23:23 → 1NO 23:23 → ENRESERV 23:55 → 1NO 10-01 01:47 → ENPENDDIS 10-02 14:17 → 1NO 10-02 15:42
PROVIDERS: Physician Assistant Medical
DX: G45.9 Transient cerebral ischemic attack, unspecified (principal); Z86.73 Personal history of transient ischemic attack (TIA), and cerebral infarction without residual deficits; I12.9 Hypertensive chronic kidney disease with stage 1 through stage 4 chronic kidney disease, or unspecified chronic kidney disease; N18.3 Chronic kidney disease, stage 3 (moderate); E78.5 Hyperlipidemia, unspecified; I49.49 Other premature depolarization; E11.22 Type 2 diabetes mellitus with diabetic chronic kidney disease; Z79.84 Long term (current) use of oral hypoglycemic drugs; G62.9 Polyneuropathy, unspecified; Z79.01 Long term (current) use of anticoagulants; Z79.82 Long term (current) use of aspirin; M62.542 Muscle wasting and atrophy, not elsewhere classified, left hand; M62.541 Muscle wasting and atrophy, not elsewhere classified, right hand; Z79.899 Other long term (current) drug therapy; R47.01 Aphasia
CPT/HCPCS: 36415; 80307; 81003; 92610-GN; 93005; 93010; 93306; 96372; 97116-GP; 97161-GP; G0378; G0480; G8996-GN; G8997-GN; G8998-GN; J0131; J1644